=== PATIENT | male | born 1945 | race Caucasian/White ===

== ENCOUNTER 2023-06-11 14:09 | Outpatient (AMB) | payer MEDICARE, SELFPAY ==
--- NOTE | 2023-06-11 14:15 | A.OFFVIS_ITS ---
Intake Vital Signs 06/11/23 14:32 Height 5 ft 8 in Weight 125 lb BMI 19.0 BP 142/70 H Blood Pressure Location Lt brachial Position Sitting Respiration 12 Pulse 86 Pulse Source Pulse Oximeter Pulse Oximetry (%) 96 Oxygen Delivery Method Room Air Intake Visit Reasons: Chronic pain syndrome/CONFIRM Intake Note: Patient comes in for initial visit was referred by primary care. Reports pain 10. Allergies aspirin Allergy (Mild, Verified 06/11/23 14:23) Unknown Iodinated Contrast Media Allergy (Mild, Verified 06/11/23 14:23) Unknown Penicillins Allergy (Mild, Verified 06/11/23 14:23) Unknown Sulfa (Sulfonamide Antibiotics) Allergy (Mild, Verified 06/11/23 14:23) Unknown HPI HPI Comments History of Present Illness Details Dav is very pleasant 78 years old very unfortunate gentleman who presents in my patient with complains on pain in lower the body. He is suffering all of his life from Crohn disease and he reports that his pain st arted long time ago. He reports his pain today 10/14. He reports the pain is most pronounced in the most lower portion of the lumbar spine mild pain in the cervical spine and most severe pain in the thoracic spine. He also reports arthritic pain in multiple joints including hands joints and ankle and elbow joints. In the past he had severe flares up of Crohn's disease he had entire colon and rectum removed and he has ileostomy. He also was diagnosed with stomach cancer and stomach resection was performed. He reports that he can not sleep normally because of his pain he can not do activities of daily living he can not take care of himself but he can not function normally. He also reports 2 to 3 times a day severe migraines. To control his pain he was prescribed by his primary care physician oxycodone 5 mg 4 times a day. He reports moderate help with oxycodone, however he admits that he sometimes takes more than he is prescribed. Heat applications cold applications weather changes in movements aggravate his pain. Sometimes cold applications or heat applications alleviate his pain. The pain is worse from 03:00 to 15:00. In terms of tissue damage he reports his pain is pulsing, pounding, cramping, dull, aching, tiring, sickening, radiating, tight sensation. In the past he had multiple studies in [facility] including MRI of spine he does not remember which studies were done those studies are not available for me. He tried herbal and homeopathic medications he tried physical therapy to help his pain. Those were not helpful. He tried some sort of a steroid injections in the past in [facility] he does not remember the name of the procedure. He only remembers that it was done on lumbar spine. Past medical history significant for headaches fatigue prostate hypertrophy anemia shortness of breath kidney stones chronic renal insufficiency history of acute kidney failure Crohn's disease and widespread arthritis. He had multiple surgical interventions in the past on his stomach and intestines. His past social history he is retired individual, he denies smoking cigarettes seldom drinks alcohol admits drinking caffeinated beverages admits drinking coffee, admits drinking soda denies recreational drugs. Review of Systems Const Reports body aches, Reports lethargy and Reports weight loss ENT Reports Normal hearing present Card Reports no additional complaints Resp Reports no additional complaints GI Reports as per HPI and Reports other (Ileostomy) Reports as per HPI Musc Reports as per HPI Neuro Reports as per HPI, Reports Normal hearing present, Denies Abnormal speech present and Denies Sensory deficit (Neuro) Psych Reports no additional complaints Physical Exam Vital Signs: Last Vital Signs Pulse 86 06/11/23 14:32 Resp 12 06/11/23 14:32 BP 142/70 H 06/11/23 14:32 Pulse Ox 96 06/11/23 14:32 Oxygen Delivery Method Room Air 06/11/23 14:32 BMI result Body Mass Index 19.0 Const General: no acute distress Nutritional Appearance: thin and underweight Orientation/consciousness: patient oriented x3 Eyes General: appearance normal, both eyes and all related structures Pupils: Equal, round and reactive pupils present EOM: EOMs intact bilaterally Neck Neck: Yes full ROM Chest Chest palpation & inspection: normal inspection of the chest Resp Effort & Inspection: normal respiratory effort, able to speak in complete sentences, normal respiratory pattern, no audible wheezes and no cough Cardio Jugular venous distension: no JVD GI Inspection: Yes normal to inspection Back/Spine/Pelvis Other: On inspection there is a large lipoma in the projection of the lower cervical upper thoracic spine. Subcutaneous lipoma most likely benign because it is mobile and not adhering to underlying tissues or skin. No tenderness on palpation on paraspinal spinal region cervical spine, significant tenderness on palpation in projection of the midthoracic spine approximately T7-T8 T9 vertebra. No tenderness on palpation in paraspinal spinal region lumbar spine but tenderness on palpation in projection of the sacral bone. No tenderness on palpation in projection of the sacroiliac joints. Flexing forward and flexing backwards aggravate his pain however flexing backwards aggravates his pain more than flexing forward. Loading test is positive bilaterally. SLR is negative bilaterally. Johnie test is negative bilaterally. Neuro General: patient oriented x3 and gait normal Cranial nerves: Yes CN's II-XII intact bilaterally, Yes Equal, round and reactive pupils present, Yes Normal hearing present and Yes Ability to bilaterally elevate shoulders present Speech: No Abnormal speech present Gait exam (Neuro): Normal gait present Motor exam (neuro): 5/5 motor strength present throughout Sensory Exam: No Sensory deficit (Neuro) Extrem General: No pedal edema Psych Speech and movement: Normal speech and movement present Affect: normal affect Attitude: cooperative Thought process: Normal thought process present Thought content: Normal thought content present Insight: Good insight present (Psych) Judgement: Good judgement present (Psych) Assessment & Plan Assessment & Plan (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: Code(s): M47.814 - Spondylosis without myelopathy or radiculopathy, thoracic region (2) Spondylosis of lumbar region without myelopathy or radiculopathy: Code(s): M47.816 - Spondylosis without myelopathy or radiculopathy, lumbar region (3) Spondylosis of cervical region without myelopathy or radiculopathy: Code(s): M47.812 - Spondylosis without myelopathy or radiculopathy, cervical region (4) Chronic pain syndrome: Code(s): G89.4 - Chronic pain syndrome (5) Osteoporosis: Code(s): M81.0 - Age-related osteoporosis without current pathological fracture (6) Intractable back pain: Code(s): M54.9 - Dorsalgia, unspecified Plan This patient is suffering from multiple pain generators secondary to severe osteoporosis and spondylosis of the entire spine. This is a result of Crohn's disease and consequences of colectomy and poor calcium absorption. His pain in the thoracic spine is intractable. I will send him for x-ray of the thoracic spine. After x-rays done I will offer him sprint PNS approximately at T8 possibly T7 possibly T9 areas. He also will sign for me the medical relief information note and we will obtain all the images we received from the [facility]. Orders: Orders XR thoracic spine 2V Today M47.814 - Spondylosis without myelopathy or radiculopathy, thoracic region Patient Instructions: I here by testify that I spent 48 minutes in conversation with this patient as well as evaluating his prior records, planning his care, ordering new study, and organizing this note. 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
[2023-06-11 14:32] VITALS: BP 142/70; PULSE 86; RESP 12; O2SAT 96; BMI 19.0
== END 2023-06-11 15:15 | disposition home or self-care (01) ==
PROVIDERS: PCP Physician Assistant Medical; Visit Provider Anesthesiology
DX: M47.814 Spondylosis without myelopathy or radiculopathy, thoracic region (principal); M47.816 Spondylosis without myelopathy or radiculopathy, lumbar region; M47.812 Spondylosis without myelopathy or radiculopathy, cervical region; G89.4 Chronic pain syndrome; M81.0 Age-related osteoporosis without current pathological fracture; M54.9 Dorsalgia, unspecified
CPT/HCPCS: 99204

== ENCOUNTER → 2023-06-11 14:09 | Outpatient (BNVA) | payer MEDICARE, BC, SELFPAY | PROVIDERS: PCP Physician Assistant Medical; Visit Provider Anesthesiology | DX: M47.814 Spondylosis without myelopathy or radiculopathy, thoracic region (principal); M47.816 Spondylosis without myelopathy or radiculopathy, lumbar region; M47.812 Spondylosis without myelopathy or radiculopathy, cervical region; M81.0 Age-related osteoporosis without current pathological fracture; M54.9 Dorsalgia, unspecified; G89.4 Chronic pain syndrome | CPT/HCPCS: 99202 ==